=== PATIENT | female | born 2000 | race Caucasian/White ===

== ENCOUNTER 2018-11-15 11:23 | Emergency (ER) | payer MEDICAID ==
[~2018-11-15] VITALS: Ht 170.2 cm; Wt 55.5 kg
[2018-11-15] MEDS ORDERED: DIPHENHYDRAMINE 50 MG/ML, 1ML ONE (11:54)
[2018-11-15] MEDS ORDERED: KETOROLAC 30 MG/1 ML ONE (11:54)
[2018-11-15] MEDS ORDERED: PROCHLORPERAZINE 5 MG/ML, 2ML ONE (11:54)
--- NOTE | 2018-11-15 11:55 | NUR ---
CONTACT WITH PT, PT IN DARKENED ROOM. 18 YR OLD FEMALE HERE WITH C/O "HEADACHE SINCE SUNDAY. MY USUAL MEDS ARENT WORKING. MY NECK IS STIFF" PT WITH SOME NAUSEA. DISCUSSED POC. UNDERSTANDING VERBALIZED.
[2018-11-15] MEDS ORDERED: DIPHENHYDRAMINE 50 MG/ML, 1ML IVPush ONE (12:00)
[2018-11-15] MEDS ORDERED: KETOROLAC 30 MG/1 ML IVPush ONE (12:00)
[2018-11-15] MEDS ORDERED: SODIUM CHLORIDE FLUSH 10ML SYR IVF ONE (12:00)
[2018-11-15] MEDS ORDERED: PROCHLORPERAZINE 5 MG/ML, 2ML IVPush ONE (12:00)
--- NOTE | 2018-11-15 12:13 | NUR ---
PT MEDICATED FOR 7/10 PAIN ORDERED.
--- NOTE | 2018-11-15 12:49 | NUR ---
PT DOZING INTERMITTENTLY, AROUSES EASILY. "I FELL ASLEEP FOR JUST A LITTLE BIT" SALAZAR DECREASED SLIGHTLY TO 6/10. CELIA JORGE AT BEDSIDE TO RE-EVAL PT. PT PROVIDED WITH BLANKET. NO OTHER NEEDS EXPRESSED AT THIS TIME.
[2018-11-15] MEDS ORDERED: OXYcodone/APAP 5/325MG TABLET ONE (13:28)
[2018-11-15] MEDS ORDERED: OXYcodone/APAP 5/325MG TABLET PO ONE (13:30)
--- NOTE | 2018-11-15 13:32 | NUR ---
PT MEDICATED ORDERED. PT AWARE OF NOT DRIVING R/T MEDS. NO NEEDS EXPRESSED AT THIS TIME.
--- NOTE | 2018-11-15 13:55 | NUR ---
SALAZAR DECREASED TO 3/10 "JUST SOME PRESSURE" IV DC'D WITH CANNULA INTACT. REVIEWED DC INSTRUCTIONS WITH PT, UNDERSTANDING VERBALIZED. PT LEFT AMB, GAIT STEADY. PT WAITING FOR FRIEND TO PICK HER UP.
[2018-11-15 13:56] VITALS: BP 118/78
== END 2018-11-15 13:58 | disposition home or self-care (01) ==
LOC: ED 13:50
DX: G43.009 Migraine without aura, not intractable, without status migrainosus (principal)
CPT/HCPCS: 96374; 96375; 99283; J0780; J1200; J1885